=== PATIENT | male | born 1960 | race Caucasian/White ===

== ENCOUNTER 2018-12-20 14:48 | Emergency (ER) | payer BC ==
[~2018-12-20] VITALS: Ht 175.3 cm; Wt 74.8 kg
[2018-12-20] MEDS ORDERED: RT-ALBUTEROL/IPRATROPIUM 3 ML (DUONEB) VIAL INH ONE (15:00)
[2018-12-20] MEDS ORDERED: methylPREDNISolone 125 MG (Solu-MEDROL) VIAL IVP ONE (15:00)
--- NOTE | 2018-12-20 15:03 | ED Dyspnea ---
General Stated Complaint: SOB Source of Information: Patient Exam Limitations: No Limitations History of Present Illness Date Seen by Provider: Dec 20, 2018 Time Seen by Provider: 15:02 Initial Comments To ER with reports of shortness of breath and wheezing. He does have a history of asthma. He is a lifelong nonsmoker. No fevers or chills. Symptoms have been getting progressively worse over the past 3-4 weeks. No cough. He takes Primatene tablets at home, no nebulizer. Timing/Duration: Increasing Severity: Moderate Activities at Onset: None Associated Symptoms: Cough, Wheezing Allergies and Home Medications Allergies Coded Allergies: No Known Drug Allergies (Unverified , 12/20/18) Patient Home Medication List Home Medication List Reviewed: Yes Review of Systems Review of Systems Constitutional: see HPI (which you want to) EENTM: see HPI Respiratory: see HPI, short of breath, wheezing Cardiovascular: no symptoms reported Genitourinary: no symptoms reported Musculoskeletal: no symptoms reported Skin: no symptoms reported Psychiatric/Neurological: No Symptoms Reported Endocrine: No Symptoms Reported Physical Exam Vital Signs Vital Signs - First Documented 12/20/18 14:53 Temp 96.6 Pulse 123 Resp 22 B/P (MAP) 145/102 (116) Pulse Ox 94 O2 Delivery Nasal Cannula O2 Flow Rate 4.00 Capillary Refill : Height, Weight, BMI Height: '" Weight: lbs. oz. kg; BMI Method: General Appearance: No Apparent Distress, WD/WN HEENT: PERRL/EOMI, TMs Normal Neck: Full Range of Motion, Normal Inspection Respiratory: Accessory Muscle Use, Decreased Breath Sounds, Wheezing Cardiovascular: Regular Rate, Rhythm, Normal Peripheral Pulses Gastrointestinal: Normal Bowel Sounds, Non Tender, Soft Neurologic/Psychiatric: Alert, Oriented x3 Skin: Normal Color, Warm/Dry Progress/Results/Core Measures Results/Orders Lab Results Laboratory Tests Test 12/20/18 15:08 12/20/18 15:18 Range/Units White Blood Count 10.4 4.3-11.0 10^3/uL Red Blood Count 5.42 4.35-5.85 10^6/uL Hemoglobin 16.0 13.3-17.7 G/DL Hematocrit 45 40-54 % Mean Corpuscular Volume 83 80-99 FL Mean Corpuscular Hemoglobin 30 25-34 PG Mean Corpuscular Hemoglobin Concent 36 32-36 G/DL Red Cell Distribution Width 12.9 10.0-14.5 % Platelet Count 329 130-400 10^3/uL Mean Platelet Volume 9.1 7.4-10.4 FL Neutrophils (%) (Auto) 59 42-75 % Lymphocytes (%) (Auto) 25 12-44 % Monocytes (%) (Auto) 8 0-12 % Eosinophils (%) (Auto) 8 0-10 % Basophils (%) (Auto) 1 0-10 % Neutrophils # (Auto) 6.1 1.8-7.8 X 10^3 Lymphocytes # (Auto) 2.6 1.0-4.0 X 10^3 Monocytes # (Auto) 0.9 0.0-1.0 X 10^3 Eosinophils # (Auto) 0.8 H 0.0-0.3 10^3/uL Basophils # (Auto) 0.1 0.0-0.1 10^3/uL D-Dimer 0.45 0.00-0.49 UG/ML Sodium Level 137 135-145 MMOL/L Potassium Level 4.3 3.6-5.0 MMOL/L Chloride Level 105 98-107 MMOL/L Carbon Dioxide Level 24 21-32 MMOL/L Anion Gap 8 5-14 MMOL/L Blood Urea Nitrogen 17 7-18 MG/DL Creatinine 1.01 0.60-1.30 MG/DL Estimat Glomerular Filtration Rate > 60 BUN/Creatinine Ratio 17 Glucose Level 99 70-105 MG/DL Calcium Level 10.5 H 8.5-10.1 MG/DL Corrected Calcium 10.2 H 8.5-10.1 MG/DL Total Bilirubin 0.4 0.1-1.0 MG/DL Aspartate Amino Transf (AST/SGOT) 16 5-34 U/L Alanine Aminotransferase (ALT/SGPT) 17 0-55 U/L Alkaline Phosphatase 96 40-136 U/L B-Type Natriuretic Peptide < 10.0 <100.0 PG/ML Total Protein 7.6 6.4-8.2 GM/DL Albumin 4.4 3.2-4.5 GM/DL Blood Gas Puncture Site UNK Blood Gas Patient Temperature 96.8 Arterial Blood pH 7.40 7.37-7.43 Arterial Blood Partial Pressure CO2 37 35-45 MMHG Arterial Blood Partial Pressure O2 93 79-93 MMHG Arterial Blood HCO3 23 23-27 MMOL/L Arterial Blood Total CO2 24.0 21.0-31.0 MMOL/L Arterial Blood Oxygen Saturation 98 94-100 % Arterial Blood Base Excess -1.6 -2.5-2.5 MMOL/L Zane Test UNK Blood Gas Ventilator Setting NO Blood Gas Inspired Oxygen UNK My Orders Orders - KAVITA LEWIS APRN Arterial Blood Gas (12/20/18 14:58) Cbc With Automated Diff (12/20/18 14:58) Comprehensive Metabolic Panel (12/20/18 14:58) Iv Heplock-Insert (Order) (12/20/18 14:58) BNP (12/20/18 14:58) Fibrin Degradation Products (12/20/18 14:58) Chest Pa/Lat (2 View) (12/20/18 14:58) Methylprednisolone Sod Succ (Solu-Medrol (12/20/18 15:00) Albuterol/Ipra Inhalation Soln (Duoneb I (12/20/18 15:00) Svn Small Volume Nebulizer (12/20/18 14:58) Medications Given in ED Current Medications Medications Dose Ordered Sig/Jayce Route Start Time Stop Time Status Last Admin Dose Admin Albuterol/ Ipratropium 3 ml ONCE ONCE INH 12/20/18 15:00 12/20/18 15:01 DC 12/20/18 15:04 3 ML Methylprednisolone Sodium Succinate 125 mg ONCE ONCE IVP 12/20/18 15:00 12/20/18 15:01 DC 12/20/18 15:05 125 MG Vital Signs/I&O 12/20/18 14:53 Temp 96.6 Pulse 123 Resp 22 B/P (MAP) 145/102 (116) Pulse Ox 94 O2 Delivery Nasal Cannula O2 Flow Rate 4.00 Departure Impression Primary Impression: Reactive airway disease Qualified Codes: J45.41 - Moderate persistent asthma with (acute) exacerbation Disposition: HOME, SELF-CARE Condition: Stable Departure-Patient Inst. Decision time for Depature: 16:05 Patient Instructions: Asthma in Adults Add. Discharge Instructions: 1. Steroids and inhaler as directed. Return to ER for any worsening. Follow-up with your doctor later this week for recheck. Scripts Albuterol Sulfate (PROAIR HFA) 1 Puff Puff 2 PUFF IH Q4H PRN for SHORTNESS OF BREATH, #1 PUFF 1 Refill 1 PUFF = 90 MCG Prov: KAVITA LEWIS APRN 12/20/18 Prednisone (Prednisone) 20 Mg Tab 40 MG PO DAILY, #8 TAB Prov: KAVITA LEWIS APRN 12/20/18 Work/School Note: Work Release Form Date Seen in the Emergency Department: Dec 20, 2018 Return to Work: Dec 21, 2018 KAVITA LEWIS APRN Dec 20, 2018 15:03
[2018-12-20 15:19] LABS: BASOPHILS # (AUTO) 0.1 10^3/uL (0.0-0.1); BASOPHILS % (AUTO) 1 % (0-10); EOSINOPHILS # (AUTO) 0.8 10^3/uL (0.0-0.3); EOSINOPHILS % (AUTO) 8 % (0-10); HEMATOCRIT 45 % (40-54); LYMPHOCYTES # (AUTO) 2.6 X 10^3 (1.0-4.0); LYMPHOCYTES % (AUTO) 25 % (12-44); MEAN CORPUSCULAR HEMOGLOBIN 30 PG (25-34); MEAN CORPUSCULAR HGB CONC 36 G/DL (32-36); MEAN CORPUSCULAR VOLUME 83 FL (80-99); MEAN PLATELET VOLUME 9.1 FL (7.4-10.4); MONOCYTES # (AUTO) 0.9 X 10^3 (0.0-1.0); MONOCYTES % (AUTO) 8 % (0-12); NEUTROPHILS # (AUTO) 6.1 X 10^3 (1.8-7.8); NEUTROPHILS % (AUTO) 59 % (42-75); PLATELET COUNT 329 10^3/uL (130-400); RED CELL DISTRIBUTION WIDTH 12.9 % (10.0-14.5); WHITE BLOOD COUNT 10.4 10^3/uL (4.3-11.0)
[2018-12-20 15:24] LABS: ABG BASE EXCESS -1.6 MMOL/L (-2.5-2.5); ABG OXYGEN SATURATION 98 % (94-100); ABG PCO2 37 MMHG (35-45); ABG PO2 93 MMHG (79-93)
[2018-12-20 15:26] LABS: PATIENT TEMP 96.8; VENTILATOR NO
[2018-12-20 15:31] LABS: ALANINE AMINOTRANSFERASE 17 U/L (0-55); ALBUMIN 4.4 GM/DL (3.2-4.5); ALKALINE PHOSPHATASE 96 U/L (40-136); BILIRUBIN,TOTAL 0.4 MG/DL (0.1-1.0); BUN/CREATININE RATIO 17; CALCIUM 10.5 MG/DL (8.5-10.1); CARBON DIOXIDE 24 MMOL/L (21-32); CHLORIDE 105 MMOL/L (98-107); CREATININE SERUM 1.01 MG/DL (0.60-1.30); GFR ESTIMATED > 60; GLUCOSE 99 MG/DL (70-105); POTASSIUM 4.3 MMOL/L (3.6-5.0); SODIUM 137 MMOL/L (135-145); TOTAL PROTEIN 7.6 GM/DL (6.4-8.2)
--- NOTE | 2018-12-20 15:50 | Diagnostic Imaging Report ---
INDICATION: Shortness of breath and wheezing. PA and lateral chest obtained at 03:26 p.m. Heart and mediastinal silhouette are normal in appearance. There is hyperinflation compatible with COPD. There is no focal infiltrate, pneumothorax, or pleural fluid. IMPRESSION: COPD changes with no acute process in the chest. Dictated by: Dictated on workstation # [id number]
[2018-12-20] MEDS ORDERED: RT-ALBUINH IH (16:07)
[2018-12-20] MEDS ORDERED: PRD20T PO (16:07)
[2018-12-20 16:18] VITALS: BP 141/107
== END 2018-12-20 16:18 | disposition home or self-care (01) ==
LOC: EDUNIT# 14:48 → ER 14:49
DX: J45.909 Unspecified asthma, uncomplicated (principal)
CPT/HCPCS: 36415; 36600; 71046; 80053; 82805; 83880; 85025; 85379; 96374

== ENCOUNTER 2019-07-09 13:12 | Emergency (ER) | payer SELFPAY ==
[~2019-07-09] VITALS: Ht 175.2 cm; Wt 77.2 kg
[~2019-07-09 13:12] MED LIST: PRD20T PO; RT-ALBUINH IH
--- NOTE | 2019-07-09 13:50 | ED Upper Extremity ---
General Chief Complaint: Laceration Stated Complaint: LEFT PINKY / RING FINGER LAC Nursing Triage Note: WAS CUTTING PLASTIC WITH STEAK KNIFE CUT L 3RD AND 4TH FINGERS . Nursing Sepsis Screen: No Definite Risk Source: patient Exam Limitations: no limitations History of Present Illness Date Seen by Provider: Jul 09, 2019 Time Seen by Provider: 13:47 Initial Comments Patient cut the tip of the left fourth and fifth fingers with a state while trying to remove a plastic zip tie from a package at home. Tetanus is up-to-date Onset: just prior to arrival Severity: moderate Pain/Injury Location: left 4th finger, left 5th finger Modifying Factors: Worse With Movement Allergies and Home Medications Allergies Coded Allergies: No Known Drug Allergies (Unverified , 12/20/18) Home Medications Albuterol Sulfate 1 Puff Puff, 2 PUFF IH Q4H PRN for SHORTNESS OF BREATH 1 PUFF = 90 MCG Prescribed by: KAVITA LEWIS on 12/20/18 1607 Patient Home Medication List Home Medication List Reviewed: Yes Review of Systems Constitutional: see HPI EENTM: see HPI Respiratory: no symptoms reported Cardiovascular: no symptoms reported Genitourinary: no symptoms reported Musculoskeletal: no symptoms reported Skin: see HPI Psychiatric/Neurological: No Symptoms Reported Past Vsgechn-Mysujj-Ftcjrt Hx Patient Social History Alcohol Use: Denies Use Recreational Drug Use: No Smoking Status: Never a Smoker Recent Foreign Travel: No Contact w/Someone Who Travel: No Recent Infectious Disease Expo: No Recent Hopitalizations: Yes Seasonal Allergies Seasonal Allergies: No Past Medical History Surgeries: No Respiratory: Yes Asthma Cardiac: No Neurological: No Genitourinary: No Gastrointestinal: No Musculoskeletal: No Endocrine: No HEENT: No Cancer: No Integumentary: No Physical Exam Vital Signs Vital Signs - First Documented 07/09/19 13:14 Temp 36.4 Pulse 87 Resp 18 B/P (MAP) 125/100 (108) Pulse Ox 96 Capillary Refill : Less Than 3 Seconds Height, Weight, BMI Height: 5'9.00" Weight: 165lbs. oz. 74.376251az; 25.00 BMI Method:Stated General Appearance: WD/WN, no apparent distress Respiratory: no respiratory distress, no accessory muscle use Shoulder: normal inspection, non-tender Elbow/Forearm: normal inspection, non-tender, Left Wrist: Yes normal inspection, Yes non-tender Hand: Left, laceration (there is a 0.5 cm laceration to the fourth finger on the left hand ulnar side distal phalanx. Bleeding is controlled with direct pressure. This was anesthetized locally with 0.5 mL of 1% lidocaine without epinephrine. Wound was then scrubbed with chlorhexidine/saline solution and closed with 3 simple sutures size 5-0 Prolene. Then wrapped with Xeroform and tube gauze. There was a 0.75 cm laceration to the fifth finger on the left hand that involves the ulnar side of the nail plate about 2 mm of it. This was anesthetized locally with 0.5 mL of lidocaine 1% without epinephrine. Wound was then scrubbed with chlorhexidine/saline and irrigated with 20 mL of the same. Closed with 4 or 5 simple interrupted sutures size 5-0 Prolene, covered with Xeroform and tube gauze. The distal flap did retain capillary refill.) Progress/Results/Core Measures Results/Orders Vital Signs/I&O 07/09/19 13:14 Temp 36.4 Pulse 87 Resp 18 B/P (MAP) 125/100 (108) Pulse Ox 96 Blood Pressure Mean: 108 Departure Impression Primary Impression: Finger laceration Qualified Codes: S61.319A - Laceration without foreign body of unspecified finger with damage to nail, initial encounter Disposition: 01 HOME, SELF-CARE Condition: Stable Departure-Patient Inst. Decision time for Depature: 13:49 Referrals: NO,LOCAL PHYSICIAN (PCP/Family) Primary Care Physician Patient Instructions: Laceration Repair With Stitches (DC) Add. Discharge Instructions: Keep this clean dry and covered today. You can remove the bandage tomorrow and it open to air. Return to ER in 10 days to have the stitches removed. Do not soak previous hand and water at any point until removed, showering starting tomorrow night is fine. All discharge instructions reviewed with patient and/or family. Voiced understanding. KAVITA LEWIS APRN Jul 09, 2019 13:50
[2019-07-09 13:54] VITALS: BP 125/100
== END 2019-07-09 13:57 | disposition home or self-care (01) ==
LOC: EDUNIT# 13:12 → ER 13:13
DX: S61.215A Laceration without foreign body of left ring finger without damage to nail, initial encounter (principal); S61.217A Laceration without foreign body of left little finger without damage to nail, initial encounter; J45.909 Unspecified asthma, uncomplicated; W26.0XXA Contact with knife, initial encounter; Y92.009 Unspecified place in unspecified non-institutional (private) residence as the place of occurrence of the external cause
CPT/HCPCS: 12001

== ENCOUNTER 2019-07-20 08:52 | Emergency (ER) | payer OTHER ==
[~2019-07-20] VITALS: Ht 175 cm; Wt 77.2 kg
[2019-07-20 09:10] VITALS: BP 121/84
== END 2019-07-20 09:10 | disposition home or self-care (01) ==
LOC: EDUNIT# 08:52 → ER 08:53
DX: S61.215D Laceration without foreign body of left ring finger without damage to nail, subsequent encounter (principal); S61.217D Laceration without foreign body of left little finger without damage to nail, subsequent encounter; X58.XXXD Exposure to other specified factors, subsequent encounter

== ENCOUNTER 2022-03-07 05:34 | Outpatient (CLI) | payer SELFPAY ==
[~2022-03-07] VITALS: Ht 177.8 cm; Wt 78.2 kg
== END 2022-03-11 13:30 | disposition home or self-care (01) ==
LOC: PREOP 05:34
PROVIDERS: ATTEND Specialist
DX: Z01.818 Encounter for other preprocedural examination (principal)

== ENCOUNTER 2022-03-14 09:28 | Day surgery (SDC) | payer SELFPAY ==
[~2022-03-14] VITALS: Ht 177.8 cm; Wt 78.2 kg
[2022-03-14] MEDS ORDERED: MOXIFLOXACIN OPHTH SOLN 5 MG/ML 0.3 ML SYRINGE OP ONE (10:00)
[2022-03-14] MEDS ORDERED: POVIDONE (BETADINE) OPHTH SOLN 5% 30 ML OP ONE (10:00)
[2022-03-14] MEDS ORDERED: TIMOLOL MALEATE 0.5% 5 ML (TIMOPTIC) BTL OU PRN (10:00)
[2022-03-14] MEDS ORDERED: LIDOCAINE PF 1% 2 ML VIAL IR PRN (10:00)
[2022-03-14] MEDS: TETRACAINE 0.5% OPHTH SOLN 4 ML BTL (SINGLE DOSE ONLY) OU PRN ×4 (10:06→10:22)
[2022-03-14] MEDS: PHENYLEPHRINE 10% OPHTH (NEO-SYN) 5 ML BTL OU SCH ×3 (10:12→10:22)
[2022-03-14] MEDS: TROPICAMIDE 1% OPH SOLN (MYDRIACYL) 15 ML BTL OP SCH ×3 (10:12→10:22)
[2022-03-14 10:18] VITALS: BP 128/98
[2022-03-14] MEDS ORDERED: MIDAZOLAM 2 MG/2 ML (VERSED) VIAL ONE (10:42)
--- NOTE | 2022-03-14 11:03 | Ophthalmologist Pre-Op Note ---
Pre-Operative Progress Note H&P Reviewed The H&P was reviewed, patient examined and no changes noted. Date H&P Reviewed: March 14, 2022 Time H&P Reviewed: 11:03 Pre-Op Dx Cataract, Left Eye NICOLLE GAMBOA MD March 14, 2022 11:03
--- NOTE | 2022-03-14 11:29 | Ophthalmology Operative Report ---
Cataract removal/placement IOL PREOPERATIVE DIAGNOSIS: Cataract Left Eye POSTOPERATIVE DIAGNOSIS: Cataract Left Eye PROCEDURE: Cataract removal and placement of posterior chamber implant, left eye SURGEON: Elfego Gamboa ANESTHESIA: Topical with sedation COMPLICATIONS: None ESTIMATED BLOOD LOSS: Minimal DESCRIPTION OF PROCEDURE: After proper informed consent was obtained, the patient, a 61 male, was taken to the Operating Room and the left eye was anesthetized with tetracaine. The left eye was then prepped and draped in the usual manner. A wire lid speculum was placed. A paracentesis was made at the left hand position. Preservative free lidocaine was injected into the anterior chamber followed by viscoelastic. A clear corneal incision was made in the temporal position. A capsulorrhexis was preformed and the central nuclear and cortical material were removed. The posterior capsule was polished and an Maximino 21.0 AU00T0 was placed into the capsular bag. The residual viscoelastic was aspirated and balanced saline solution was injected into the anterior chamber. Moxifloxacin was injected into the anterior chamber. The wound was checked and found to be water tight. The patient tolerated the procedure well without complications. ELFEGO GAMBOA MD March 14, 2022 11:29
[2022-03-14 11:38] VITALS: BP 120/94
--- NOTE | 2022-03-14 13:51 | Anesthesia-General Post-Op ---
MAC Patient Condition Mental Status/LOC: Same as Preop Cardiovascular: Satisfactory Nausea/Vomiting: Absent Respiratory: Satisfactory Pain: Controlled Complications: Absent Post Op Complications Complications None Follow Up Care/Instructions Patient Instructions None needed. Anesthesiology Discharge Order Discharge Order Patient is doing well, no complaints, stable vital signs, no apparent adverse anesthesia problems. No complications reported per nursing. ANDREA MOSES CRNA March 14, 2022 13:50
[2022-03-14] MEDS ORDERED: acetaZOLAMIDE ER 500 MG CAP (DIAMOX SEQUELS) PO ONE (14:00)
== END 2022-03-14 11:39 | disposition home or self-care (01) ==
LOC: SDC 09:28
PROVIDERS: ATTEND Specialist
DX: H25.9 Unspecified age-related cataract (principal)
CPT/HCPCS: 66984; V2632

== ENCOUNTER → 2022-04-04 | Outpatient (CLI) | payer SELFPAY | END | disposition home or self-care (01) | LOC: PREOP 05:32 | PROVIDERS: ATTEND Specialist | DX: Z01.818 Encounter for other preprocedural examination (principal) ==

== ENCOUNTER 2022-04-11 11:29 | Day surgery (SDC) | payer SELFPAY ==
[~2022-04-11] VITALS: Ht 177.8 cm; Wt 78.2 kg
[2022-04-11] MEDS: TETRACAINE 0.5% OPHTH SOLN 4 ML BTL (SINGLE DOSE ONLY) OU PRN ×4 (11:44→12:05)
[2022-04-11] MEDS ORDERED: LIDOCAINE PF 1% 2 ML VIAL IR PRN (11:45)
[2022-04-11] MEDS ORDERED: POVIDONE (BETADINE) OPHTH SOLN 5% 30 ML OP ONE (11:45)
[2022-04-11] MEDS ORDERED: MOXIFLOXACIN OPHTH SOLN 5 MG/ML 0.3 ML SYRINGE OP ONE (11:45)
[2022-04-11] MEDS ORDERED: TIMOLOL MALEATE 0.5% 5 ML (TIMOPTIC) BTL OU PRN (11:45)
[2022-04-11 11:46] VITALS: BP 124/83
[2022-04-11] MEDS: TROPICAMIDE 1% OPH SOLN (MYDRIACYL) 15 ML BTL OP SCH ×3 (11:54→12:05)
[2022-04-11] MEDS: PHENYLEPHRINE 10% OPHTH (NEO-SYN) 5 ML BTL OU SCH ×3 (11:54→12:06)
--- NOTE | 2022-04-11 12:40 | Ophthalmologist Pre-Op Note ---
Pre-Operative Progress Note H&P Reviewed The H&P was reviewed, patient examined and no changes noted. Date H&P Reviewed: Apr 11, 2022 Time H&P Reviewed: 12:40 Pre-Op Dx Cataract, Right Eye NICOLLE GAMBOA MD Apr 11, 2022 12:40
[2022-04-11] MEDS ORDERED: MIDAZOLAM 2 MG/2 ML (VERSED) VIAL ONE (12:42)
--- NOTE | 2022-04-11 13:03 | Ophthalmology Operative Report ---
Cataract removal/placement IOL PREOPERATIVE DIAGNOSIS: Cataract Right Eye POSTOPERATIVE DIAGNOSIS: Cataract Right Eye PROCEDURE: Cataract removal and placement of posterior chamber implant, right eye SURGEON: Elfego Gamboa ANESTHESIA: Topical with sedation COMPLICATIONS: None ESTIMATED BLOOD LOSS: Minimal DESCRIPTION OF PROCEDURE: After proper informed consent was obtained, the patient, a 61 male, was taken to the Operating Room and the right eye was anesthetized with tetracaine. The right eye was then prepped and draped in the usual manner. A wire lid speculum was placed. A paracentesis was made at the left hand position. Preservative free lidocaine was injected into the anterior chamber followed by viscoelastic. A clear corneal incision was made in the temporal position. A capsulorrhexis was preformed and the central nuclear and cortical material were removed. The posterior capsule was polished and Maximino 21.0 AU00T0 IOL was placed into the capsular bag. The residual viscoelastic was aspirated and balanced saline solution was injected into the anterior chamber. Moxifloxacin was injected into the anterior chamber. The wound was checked and found to be water tight. The patient tolerated the procedure well without complications. ELFEGO GAMBOA MD Apr 11, 2022 13:03
[2022-04-11 13:07] VITALS: BP 119/94
[2022-04-11] MEDS ORDERED: acetaZOLAMIDE ER 500 MG CAP (DIAMOX SEQUELS) PO ONE (13:15)
--- NOTE | 2022-04-11 13:28 | Anesthesia-General Post-Op ---
MAC Patient Condition Mental Status/LOC: Same as Preop Cardiovascular: Satisfactory Nausea/Vomiting: Absent Respiratory: Satisfactory Pain: Controlled Complications: Absent Post Op Complications Complications None Follow Up Care/Instructions Patient Instructions None needed. Anesthesiology Discharge Order Discharge Order Patient is doing well, no complaints, stable vital signs, no apparent adverse anesthesia problems. No complications reported per nursing. ANDREA MOSES CUSTOMER ADVISOR Apr 11, 2022 13:28
== END 2022-04-11 13:09 | disposition home or self-care (01) ==
LOC: SDC 11:29
PROVIDERS: ATTEND Specialist
DX: H25.9 Unspecified age-related cataract (principal)
CPT/HCPCS: 66984; V2632

== ENCOUNTER 2022-06-06 01:09 | Emergency (ER) | payer OTHER ==
[~2022-06-06] VITALS: Ht 177.8 cm; Wt 77.1 kg
--- NOTE | 2022-06-06 02:13 | ED EENT ---
History of Present Illness General Chief Complaint: Eye Problems Stated Complaint: STS FEELS LIKE HELL,RASH Nursing Triage Note: PATIENT STATES THAT HIS LEFT EYE BEGAN SWELLING TWO DAYS AGO. THERE IS REDNESS AND SWELLING AROUND THE EYE AND HE IS UNABLE TO OPEN THE EYE. HE HAS NOT SEEN A DOCTOR ABOUT THIS. Source: patient (BEULAH RIOJAS Ruba GONZALEZ) History of Present Illness Date Seen by Provider: Jun 06, 2022 Time Seen by Provider: 01:35 Initial Comments PT ARRIVES VIA POV FROM HOME C/O SWELLING AND REDNESS TO LEFT EYE ABOUT 3 DAYS AGO ALSO HAS A RASH TO LEFT FOREHEAD, ALL AROUND LEFT EYE AND LEFT SIDE OF NOSE IS MILDLY PAINFUL NO FEVER OR RECENT ILLNESS NO HISTORY OF SIMILAR HAS NOT SOUGHT CARE UNTIL TONIGHT PT HAS HAD BILATERAL CATARACT SURGERY IN FEBRUARY AND MARCH OF THIS YEAR---DR. GAMBOA PCP: [facility], BUT DOES NOT ROUTINELY GO TO DR. CIRCUS ARTIST: DR. MCFARLANE (BEULAH RIOJAS DO) Allergies and Home Medications Allergies Coded Allergies: No Known Drug Allergies (Unverified , 03/11/22) Patient Home Medication List Home Medication List Reviewed: Yes (GILA ACOSTA MD) Albuterol Sulfate (Proair Hfa) 1 Puff Puff, 2 PUFF IH Q4H PRN for SHORTNESS OF BREATH Prescribed by: KAVITA LEWIS on 12/20/18 1507 Review of Systems Review of Systems Constitutional: no symptoms reported Eyes: See HPI Ears: No Symptoms Reported Nose: see HPI Mouth: no symptoms reported Throat: no symptoms reported Respiratory: no symptoms reported Cardiovascular: no symptoms reported Gastrointestinal: no symptoms reported Musculoskeletal: no symptoms reported Skin: see HPI Neurological: No Symptoms Reported; Denies Headache, Denies Numbness, Denies Paresthesia, Denies Tingling, Denies Weakness Hematologic/Lymphatic: No Symptoms Reported Immunological/Allergic: no symptoms reported (BEULAH RIOJAS DO) Past Rrucvgx-Xvfmuc-Ifdfrg Hx Seasonal Allergies Seasonal Allergies: No (BEULAH RIOJAS DO) Past Medical History Surgeries: Yes (BILATERAL CATARACT SURGERY MARCH 2022) Eye Surgery Respiratory: Yes Asthma Cardiac: No Neurological: No Genitourinary: No Gastrointestinal: No Musculoskeletal: No Endocrine: No HEENT: Yes Cataract Cancer: No Psychosocial: No Integumentary: No Blood Disorders: No (BEULAH RIOJAS DO) Physical Exam Vital Signs Vital Signs - First Documented 06/06/22 01:32 Temp 36.0 Pulse 100 Resp 18 B/P (MAP) 138/108 (118) Pulse Ox 94 O2 Delivery Room Air (GILA ACOSTA MD) Height, Weight, BMI Height: 5'9.00" Weight: 165lbs. oz. 74.770661yi; 24.00 BMI Method:Stated General Appearance: WD/WN, no apparent distress Eyes: right eye normal inspection; left eye other (SIGNFICANT LEFT EYE PERIORBITAL EDEMA AND ERYTHEMA--LEFT EYE IS SWOLLEN SHUT. ABLE TO PRY LEFT EYE OPEN A LITTLE BIT--CONJUNCTIVA IS MARKEDLY INFLAMED AND EDEMATOUS. NO OBVIOUS ULCER TO EYE ITSELF, BUT IS VERY LIMITED VISUALIZATION. ENTIRE LEFT FOREHEAD, LEFT PERIORIBTAL AREA AND LEFT SIDE OF NOSE--DOWN TO TIP OF NOSE-- WITH EXTENSIVE MACULOPAPULAR/VESICULAR RASH, WITH EXTENSIVE CRUSTING/SCABBING--LEFT UPPER LID WITH EXTENSIVE CRUSTING. ) Ears: bilateral ear auricle normal, bilateral ear canal normal, bilateral ear TM normal Nose: other ( ABOVE) Mouth/Throat: normal mouth inspection Neck: normal inspection Cardiovascular: regular rate, rhythm Respiratory: normal breath sounds Neurologic/Psychiatric: no motor/sensory deficits, alert, normal mood/affect, oriented x 3, other (UNABLE TO DETERMINE LEFT CRANIAL NERVES DUE TO EXTENSIVE SWELLING OF LEFT PERIORBITAL AREA) Skin: rash ( NOTED ABOVE) (BEULAH RIOJAS DO) Progress/Results/Core Measures Results/Orders Lab Results Laboratory Tests Test 06/06/22 03:02 Range/Units White Blood Count 7.1 4.3-11.0 10^3/uL Red Blood Count 4.96 4.30-5.52 10^6/uL Hemoglobin 14.8 13.3-17.7 g/dL Hematocrit 42 40-54 % Mean Corpuscular Volume 85 80-99 fL Mean Corpuscular Hemoglobin 30 25-34 pg Mean Corpuscular Hemoglobin Concent 35 32-36 g/dL Red Cell Distribution Width 12.1 10.0-14.5 % Platelet Count 220 130-400 10^3/uL Mean Platelet Volume 8.9 L 9.0-12.2 fL Immature Granulocyte % (Auto) 0 % Neutrophils (%) (Auto) 71 42-75 % Lymphocytes (%) (Auto) 14 12-44 % Monocytes (%) (Auto) 13 H 0-12 % Eosinophils (%) (Auto) 1 0-10 % Basophils (%) (Auto) 0 0-10 % Neutrophils # (Auto) 5.0 1.8-7.8 10^3/uL Lymphocytes # (Auto) 1.0 1.0-4.0 10^3/uL Monocytes # (Auto) 0.9 0.0-1.0 10^3/uL Eosinophils # (Auto) 0.1 0.0-0.3 10^3/uL Basophils # (Auto) 0.0 0.0-0.1 10^3/uL Immature Granulocyte # (Auto) 0.0 0.0-0.1 10^3/uL Erythrocyte Sedimentation Rate 7 0-30 MM/HR Sodium Level 134 L 135-145 MMOL/L Potassium Level 4.2 3.6-5.0 MMOL/L Chloride Level 102 98-107 MMOL/L Carbon Dioxide Level 21 21-32 MMOL/L Anion Gap 11 5-14 MMOL/L Blood Urea Nitrogen 10 7-18 MG/DL Creatinine 0.96 0.60-1.30 MG/DL Estimat Glomerular Filtration Rate 89 BUN/Creatinine Ratio 10 Glucose Level 106 H 70-105 MG/DL Calcium Level 9.8 8.5-10.1 MG/DL Corrected Calcium 9.8 8.5-10.1 MG/DL Total Bilirubin 0.6 0.1-1.0 MG/DL Aspartate Amino Transf (AST/SGOT) 17 5-34 U/L Alanine Aminotransferase (ALT/SGPT) 21 0-55 U/L Alkaline Phosphatase 81 40-136 U/L C-Reactive Protein High Sensitivity 2.04 H 0.00-0.50 MG/DL Total Protein 6.8 6.4-8.2 GM/DL Albumin 4.0 3.2-4.5 GM/DL (GILA ACOSTA MD) My Orders Orders - GILA ACOSTA MD Ceftriaxone 1 Gram Iv (06/06/22 07:01) (GILA ACOSTA MD) Medications Given in ED Current Medications Medications Dose Ordered Sig/Jayce Route Start Time Stop Time Status Last Admin Dose Admin Ketorolac Tromethamine 30 mg ONCE ONCE IVP 06/06/22 05:00 06/06/22 05:01 DC 06/06/22 05:12 30 MG (GILA ACOSTA MD) Vital Signs/I&O 06/06/22 01:32 Temp 36.0 Pulse 100 Resp 18 B/P (MAP) 138/108 (118) Pulse Ox 94 O2 Delivery Room Air (GILA ACOSTA MD) Blood Pressure Mean: 118 Progress Progress Note : Progress Note GIVEN IV ACYCLOVIR NO ANTI-VIRAL OPHTHALMIC MEDICATIONS ARE AVAILABLE HERE AT HOSPITAL. GIVEN TORADOL FOR C/O HEAD/FACIAL PAIN CARE TURNED OVER TO DR. ACOSTA AT SHIFT CHANGE, STILL ATTEMPTING TO CONTACT LOCAL CIRCUS ARTIST (BEULAH RIOJAS DO) Progress Note : Time: 07:02 Progress Note Care of this patient was assumed from Dr. Riojas. I discussed the case with Dr. Mcgarry at Dr. Mcfarlane's clinic. She would like to assess him at the clinic at 0800 where there is better equipment available. We will leave his IV in so that he maintains IV access if admission is deemed necessary. I did confirm with Dr. Mcgarry that they will be able to remove the IV if he is not admitted to the hospital. Pain is controlled at this time. He has significant swelling and crusting of the left face. The eye itself is difficult to assess due to swelling and crusting of the eyelids. Patient states that he retains vision. We will give a dose of Rocephin to cover for any possible concurrent bacterial infection before sending him to the clinic. Patient did receive the IV dose of acyclovir. (GILA ACOSTA MD) Departure Communication (Admissions) [phone]--CALLED DR. EAST, CIRCUS ARTIST--NO ANSWER, MESSAGE LEFT ON PHONE [phone]--CALLED DR. MCFARLANE CIRCUS ARTIST--NO ANSWER, MESSAGE LEFT ON PHONE [phone]--CALLED DR. MCGARRY CIRCUS ARTIST--NO ANSWER, MESSAGE LEFT ON PHONE [phone]--CALLED [facility] AND AIR CONDITIONING MECHANIC 021--SPOKE WITH DR. YU, AIR CONDITIONING MECHANIC, HE WILL ONLY SEE PT IN OFFICE--WILL NOT SEE PT IN HOSPITAL--ONLY IN OFFICE FOLLOW UP . HE ADVISES GANGCYCLOVIR OPHTHALMIC GEL 5 TIMES A DAY ( NO ANTIVIRAL OPHTHALMIC MEDICATIONS ARE AVAILABLE HERE AT THIS FACILITY). HOSPITALIST WILL NOT ADMIT PT IF OPHTHALMOLOGY WILL NOT SEE PT IN HOSPITAL. 213--CALLED DR. MCFARLANE, NO ANSWER, MESSAGE LEFT ON PHONE 214--CALLED DR. EAST, NO ANSWER, MESSAGE LEFT ON PHONE [phone]--CALLED DR. MCGARRY, NO ANSWER, MESSAGE LEFT ON PHONE [phone]--CALLED [facility] TRANSFER LINE, THEY WILL CALL BACK [phone]--CALLED [employer] TRANSFER LINE. 426--SPOKE WITH DR. 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 HE CONTINUES TO ADVISE THAT HE WILL NOT SEE PT IN HOSPITAL. SLIP COVER MAKER HAS ALREADY DISCUSSED WITH HOSPITALIST, WHO WILL NOT ADMIT IF OPHTHALMOLOGY WILL NOT SEE PT IN HOSPITAL. (BEULAH RIOJAS DO) Impression Primary Impression: HERPES ZOSTER TO LEFT PERIORBITAL AREA Additional Impression: Herpes zoster ophthalmicus of left eye Disposition: 01 HOME, SELF-CARE Condition: Stable Departure-Patient Inst. Decision time for Depature: 07:04 (GILA ACOSTA MD) Referrals: [facility] (PCP/Family) Primary Care Physician Patient Instructions: Shingles Add. Discharge Instructions: Go directly to Dr. Mcfarlane's office. Dr. Mcgarry will see you there at 8:00. Leave your IV in place and covered. Your IV may be needed again if you are admitted to [facility] in [place] or if you are transferred onto an staff submarine warfare officer at another facility. Dr. Mcgarry will evaluate you and determine where and how you should be treated after a thorough eye exam. Be sure your IV is removed if you are not admitted to the hospital. Call with questions or concerns. All discharge instructions reviewed with patient and/or family. Voiced und erstanding. BEULAH RIOJAS DO Jun 06, 2022 02:13 GILA ACOSTA MD Jun 06, 2022 07:07
[2022-06-06 03:07] LABS: BASOPHILS % (AUTO) 0 % (0-10); EOSINOPHILS # (AUTO) 0.1 10^3/uL (0.0-0.3); EOSINOPHILS % (AUTO) 1 % (0-10); HEMATOCRIT 42 % (40-54); HEMOGLOBIN 14.8 g/dL (13.3-17.7); LYMPHOCYTES % (AUTO) 14 % (12-44); MEAN CORPUSCULAR HEMOGLOBIN 30 pg (25-34); MEAN CORPUSCULAR HGB CONC 35 g/dL (32-36); MEAN CORPUSCULAR VOLUME 85 fL (80-99); MEAN PLATELET VOLUME 8.9 fL (9.0-12.2); MONOCYTES # (AUTO) 0.9 10^3/uL (0.0-1.0); MONOCYTES % (AUTO) 13 % (0-12); NEUTROPHILS % (AUTO) 71 % (42-75); PLATELET COUNT 220 10^3/uL (130-400); WHITE BLOOD COUNT 7.1 10^3/uL (4.3-11.0)
[2022-06-06] MEDS ORDERED: NS (IVPB) 250 ML ONE (03:13)
[2022-06-06 03:32] LABS: BILIRUBIN,TOTAL 0.6 MG/DL (0.1-1.0); CALCIUM 9.8 MG/DL (8.5-10.1); CREATININE SERUM 0.96 MG/DL (0.60-1.30); POTASSIUM 4.2 MMOL/L (3.6-5.0); TOTAL PROTEIN 6.8 GM/DL (6.4-8.2)
[2022-06-06 04:15] LABS: ERYTHROCYTE SEDIMENTATION RATE 7 MM/HR (0-30)
[2022-06-06] MEDS ORDERED: KETOROLAC 30 MG/ML VIAL IVP ONE (05:00)
[2022-06-06] MEDS ORDERED: ACYCLOVIR INJECTION 800 MG in NS (IVPB) 250 ML IV SCH (06:00)
[2022-06-06] MEDS ORDERED: cefTRIAXone 1 GM PRE-MIX 50 ML IV STA (07:01)
[2022-06-06 07:40] VITALS: BP 115/84
== END 2022-06-06 07:40 | disposition home or self-care (01) ==
LOC: EDUNIT# 01:09 → ER 01:11
DX: B02.30 Zoster ocular disease, unspecified (principal)
CPT/HCPCS: 36415; 80053; 85025; 85652; 86141